=== PATIENT | female | born 1990 | race Caucasian/White ===

== ENCOUNTER 2020-03-03 15:54 | Emergency (ER) | payer OTHER, SELFPAY ==
--- NOTE | ~2020-03-03 | XR_ITS ---
EXAMINATION: XR foot RT min 3V EXAM DATE: 03/03/2020 17:25 INDICATION: Right foot redness and pain medially. TECHNIQUE: Right foot dorsoplantar, lateral and oblique projections obtained and reviewed. There is no prior study for comparison. FINDINGS: Right metatarsal bones unremarkable. There are no acute fractures or dislocations identifi ed. There is no subcutaneous gas. The soft tissue is unremarkable. There is a screw in the tibial plafond . There are no bony erosions identified. IMPRESSION: 1. Unremarkable right foot exam. Reviewed, dictated and finalized at location A.
[2020-03-03 16:18] VITALS: BP 146/86; PULSE 98; RESP 20; TEMP 37.1; O2SAT 98
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
--- NOTE | 2020-03-03 17:29 | PC.NURSE ---
pt denies being and unable to provide urine specimen at this time. Portable xray at bedside to obtain imaging.
[2020-03-03 18:21] LABS: Basophils Percent Auto 0.5 % (0.2-1.2); Eosinophils Absolute Auto 0.1 K/mm3 (0-0.3); Eosinophils Percent Auto 1.2 % (0-4.4); Hematocrit 36.5 % (37.0-47.0); Hemoglobin 12.1 g/dL (12.0-15.0); Immature Granulocyte Absolute 0.01 K/mm3 (0.00-0.031); Immature Granulocyte Percent A 0.1 % (0-0.5); Lymphocytes Absolute Auto 1.61 K/mm3 (0.9-3.2); Lymphocytes Percent Auto 19.9 % (18.3-44.2); Mean Corpuscular HGB Conc 33.2 g/dl (32-36); Mean Corpuscular Hemoglobin 29.6 pg (26-34); Mean Corpuscular Volume 89.2 fl (80-100); Mean Platelet Volume 10.6 fl (7.4-10.4); Monocytes Absolute Auto 0.6 K/mm3 (0.1-0.6); Monocytes Percent Auto 7.8 % (2.6-8.5); Neutrophils Absolute Auto 5.7 K/mm3 (1.3-6.7); Neutrophils Percent Auto 70.5 % (45.5-73.1); Platelet Count Result 280 k/mm3 (150-375); Red Blood Count 4.09 M/mm3 (4.2-5.4); Red Cell Distribution Width 12.7 % (11.5-14.5); White Blood Count 8.1 K/mm3 (4.5-10.0)
[2020-03-03] MEDS: IBUPROFEN 600 MG TABLET PO (18:32)
[2020-03-03 18:36] LABS: Alanine Aminotransferase 18 U/L (4-35); Albumin Level 4.1 g/dL (3.5-5.1); Alkaline Phosphatase 72 U/L (38-126); Anion Gap 10 mmol/L (8-16); Aspartate Amino Transferase 25 U/L (14-36); Bilirubin,Total 0.2 mg/dL (0.2-1.3); Blood Urea Nitrogen 11 mg/dL (7-17); Calcium 8.8 mg/dL (8.4-10.2); Carbon Dioxide 27 mmol/L (22-30); Chloride 104 mmol/L (98-107); Estimated CRCL calculation 112 ml/min; Estimated Glomerular Filt Rate > 60; Glucose 88 mg/dL (65-105); Potassium 3.7 mmol/L (3.4-5.0); Sodium 141 mmol/L (137-145)
--- NOTE | 2020-03-03 19:00 | PC.NURSE ---
pt denies being able to provide urine specimen at this time.
[2020-03-03 20:03] VITALS: BP 131/84; PULSE 92; RESP 18; O2SAT 99
== END 2020-03-03 20:07 | disposition home or self-care (01) ==
PROVIDERS: Emergency Medicine; Emergency Provider Emergency Medicine; PCP Family Medicine
DX: S61.401A Unspecified open wound of right hand, initial encounter (principal); L03.115 Cellulitis of right lower limb; X58.XXXA Exposure to other specified factors, initial encounter
CPT/HCPCS: 11042; 11043; 36415; 73630; 80053; 85025; 99283; A9270

== ENCOUNTER 2024-06-04 10:06 | Emergency (ER) | payer OTHER, SELFPAY ==
--- NOTE | ~2024-06-04 | CT_ITS ---
EXAMINATION: CT abdomen pelvis w con DATE: 06/04/2024 13:00 INDICATION: Lower abdominal pain. TECHNIQUE: Computed tomography (CT) of the abdomen and pelvis was performed with 100 mL Omnipaque 350 intravenous contrast. Automated exposure control and iterative reconstruction technique were employe d. The dose-length product was 1477.82 mGy-cm. COMPARISON: None. FINDINGS: The visualized portions of the lung bases demonstrate mild atelectasis. No pleural effusion . The heart size is normal. No pericardial effusion. The liver, gallbladder, spleen, pancreas, adrena l glands, and kidneys are normal. There are no dilated loops of bowel. The appendix is not visualized . There are no pathologically enlarged lymph nodes. There is no free intraperitoneal fluid. There is a 2.3 x 1.8 cm subcutaneous mass in the low anterior abdominal wall to the left of midline with surro unding fat stranding. There is moderate thoracic spondylosis and lumbar spondylosis. There are chroni c bilateral L5 pars defects. IMPRESSION: 1. 2.3 cm subcutaneous mass in low anterior abdominal wall, most likely endometriosis in the section scar. Ultrasound-guided core needle biopsy is recommended. Reviewed, dictated and finalized at location A. ER LOADER IMPRESSION: 1. 2.3 cm subcutaneous mass in low anterior abdominal wall, most likely endomet riosis in the section scar. Ultrasound-guided core needle biopsy is re commended.
[2024-06-04 10:10] VITALS: BP 136/86; PULSE 90; RESP 16; TEMP 36.9; O2SAT 100
[2024-06-04 11:18] LABS: Basophils Percent Auto 0.4 % (0.2-1.2); Eosinophils Percent Auto 0.6 % (0-4.4); Hemoglobin 13.6 g/dL (12.0-15.0); Immature Granulocyte Absolute 0.01 K/mm3 (0.00-0.031); Immature Granulocyte Percent A 0.2 % (0-0.5); Lymphocytes Absolute Auto 1.39 K/mm3 (0.9-3.2); Lymphocytes Percent Auto 28.9 % (18.3-44.2); Mean Corpuscular HGB Conc 33.2 g/dl (32-36); Mean Corpuscular Hemoglobin 29.1 pg (26-34); Mean Corpuscular Volume 87.6 fl (80-100); Mean Platelet Volume 9.4 fl (7.4-10.4); Monocytes Absolute Auto 0.4 K/mm3 (0.1-0.6); Monocytes Percent Auto 7.5 % (2.6-8.5); Neutrophils Percent Auto 62.4 % (45.5-73.1); Platelet Count Result 241 k/mm3 (150-375); Red Blood Count 4.68 M/mm3 (4.2-5.4); Red Cell Distribution Width 13.2 % (11.5-14.5); White Blood Count 4.8 K/mm3 (4.5-10.0)
[2024-06-04 11:21] LABS: Add Urine Microscopic? NO; Appearance Urine Clear (Clear); Bilirubin Urine Negative (Negative); Blood Urine Negative (Negative); Color Urine Yellow (Yellow); Glucose Urine UA Negative (Negative); Ketones Urine Negative (Negative); Leukocyte Esterase Ur Negative LEU/UL (Negative); Nitrate Urine Negative (Negative); Protein Urine Negative (Negative); Specific Grav Ur 1.014 (1.001-1.035); Urobilinogen Urine 0.2 mg/dL (<2.0)
[2024-06-04 11:31] LABS: Alanine Aminotransferase 16 U/L (6-35); Albumin Level 4.4 g/dL (3.5-5.1); Alkaline Phosphatase 54 U/L (38-126); Anion Gap 5 mmol/L (4-12); Aspartate Amino Transferase 23 U/L (14-36); Bilirubin,Total 0.6 mg/dL (0.2-1.3); Blood Urea Nitrogen 13 mg/dL (7-17); Calcium 9.1 mg/dL (8.4-10.2); Carbon Dioxide 30 mmol/L (22-30); Chloride 103 mmol/L (98-107); Estimated CRCL calculation 118 ml/min; Estimated Glomerular Filt Rate > 60; Glucose 86 mg/dL (65-110); Lipase 81 U/L (23-300); Potassium 4.5 mmol/L (3.4-5.0); Sodium 138 mmol/L (137-145)
--- NOTE | 2024-06-04 11:34 | ED_ITS ---
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 SHE DENIES ANY FEVER, CHILLS, NAUSEA, VOMITING, DIARRHEA, CONSTIPATION, VAGINAL BLEEDING OR DISCHARGE. PATIENT IS HEALTHY OTHERWISE, DOES NOT TAKE MEDICINE AT HOME, USES MARIJUANA OCCASIONALLY Related Data Allergies Allergy/AdvReac Type Severity Reaction Status Date / Time acetaminophen (From Vicodin) AdvReac Vomiting Verified 06/04/24 11:21 hydrocodone (From Vicodin) AdvReac Vomiting Verified 06/04/24 11:21 Review of Systems 2 Review of Systems: All systems reviewed & are unremarkable except as noted in HPI and below PMFSH Family History Family History Mother Depression Family history of malignant neoplasm Sibling Asthma Family history of attention deficit hyperactivity disorder (ADHD) Social History Social History Second hand tobacco smoke exposure: Yes Alcohol intake: current Exam 2 Narrative: GENERAL APPEARANCE: WELL-DEVELOPED, WELL-NOURISHED SKIN: NORMAL COLOR HEAD: NORMOCEPHALIC, NONTRAUMATIC EYES: CLEAR CONJUNCTIVA ENT: OROPHARYNX NORMAL, EARS NORMAL, NOSE NORMAL NECK: SUPPLE, NONTENDER CHEST AND RESPIRATORY: AIRWAY PATENT, NO RESPIRATORY DISTRESS, NO ACCESSORY MUSCLE USE HEART: REGULAR RATE/RHYTHM ABDOMEN: SOFT, MILD DIFFUSE TENDERNESS LEFT LOWER QUADRANT WITH MASSLIKE FEELING AT THE LEFT SIDE OF THE SECTION, TENDER TO TOUCH, FIRM IN CONSISTENCY, NO ORGANOMEGALY, QUIET BOWEL SOUNDS VASCULAR: NORMAL PERIPHERAL PULSES, NORMAL CAPILLARY REFILL. 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 TESTED, NO GROSS MOTOR DEFICIT Course Vital Signs Vital signs: Vital Signs Temperature 36.9 C 06/04/24 10:10 Pulse Rate 90 06/04/24 10:10 Respiratory Rate 16 06/04/24 10:10 Blood Pressure 136/86 06/04/24 10:10 Pulse Oximetry 100 06/04/24 10:10 Oxygen Delivery Room Air 06/04/24 10:10 Temperature 36.6 C 06/04/24 12:52 Pulse Rate 69 06/04/24 12:52 Respiratory Rate 16 06/04/24 12:52 Blood Pressure 114/76 06/04/24 12:52 Pulse Oximetry 100 06/04/24 12:52 Oxygen Delivery Room Air 06/04/24 10:10 MDM - Abdominal Pain MDM Narrative Medical decision making narrative: LEFT LOWER QUADRANT PAIN WHILE LIFTING A BUCKET VITAL SIGNS ON ARRIVAL INSIGNIFICANT PHYSICAL EXAMINATION SHOWING TENDERNESS WITH DEEP PALPATION AT THE LEFT LOWER QUADRANT WITH MASSLIKE FEELING DIFFERENTIAL DIAGNOSIS ABDOMINAL WALL MUSCULAR STRAIN/SPRAIN, ABDOMINAL WALL HEMATOMA. BLOOD WORKUP TODAY INCLUDES CBC, CMP, LIPASE SHOWED NO SIGNIFICANT ABNORMALITIES URINALYSIS SHOWED NO EVIDENCE OF INFECTION CT SCAN OF THE ABDOMEN AND PELVIS SHOWED. 2.3 cm subcutaneous mass in low anterior abdominal wall, most likely endometriosis in the section scar. Ultrasound-guided core needle biopsy is recommended. PATIENT'S SYMPTOMS RESOLVED AFTER ARRIVING TO THE EMERGENCY ROOM, CURRENTLY IS PAIN-FREE THE PAIN HIGH LIKELY SECONDARY TO MUSCULAR STRAIN/SPRAIN AND LESS LIKELY SECONDARY TO THE MASS AT THE SUBCUTANEOUS AREA. PATIENT WAS ADVISED TO TAKE TYLENOL, IBUPROFEN NEEDED AND FOLLOW-UP WITH OBGYN IMMEDIATELY FOR FURTHER EVALUATION DISCHARGE THE PT WAS DISCHARGED TO HOME.THE PT,S CONDITION UPON DISCHARGE WAS FAIR,EDUCATION WAS PROVIDED TO THE PT IN REFERENCE TO THE FINAL IMPRESSION,DISCHARGE STUDY RESULTS,TREATMENT,PROGNOSIS AND NEED FOR FOLLOW UP . Differential Diagnosis Differential diagnosis: Likely other ( ABOVE) Medical Records Attestation: I reviewed the patient's medical records. Lab Data Attestation: I reviewed the patient's lab results. 06/04/24 11:12 06/04/24 11:12 Labs: Lab Results 06/04/24 Range/Units 11:12 WBC 4.8 (4.5-10.0) K/mm3 RBC 4.68 (4.2-5.4) M/mm3 Hgb 13.6 (12.0-15.0) g/dL Hct 41.0 (37.0-47.0) % MCV 87.6 (80-100) fl MCH 29.1 (26-34) pg MCHC 33.2 (32-36) g/dl RDW 13.2 (11.5-14.5) % Plt Count 241 (150-375) k/mm3 MPV 9.4 (7.4-10.4) fl Immature Gran % (Auto) 0.2 (0-0.5) % Neut % (Auto) 62.4 (45.5-73.1) % Lymph % (Auto) 28.9 (18.3-44.2) % [place] % (Auto) 7.5 (2.6-8.5) % Eos % (Auto) 0.6 (0-4.4) % Baso % (Auto) 0.4 (0.2-1.2) % Lymph # (Auto) 1.39 (0.9-3.2) K/mm3 Spencer # (Auto) 0.4 (0.1-0.6) K/mm3 Eos # (Auto) 0.0 (0-0.3) K/mm3 Baso # (Auto) 0.0 (0.0-0.1) K/mm3 Abs Immat Gran (auto) 0.01 (0.00-0.031) K/mm3 Absolute Neuts (auto) 3.0 (1.3-6.7) K/mm3 Absolute Nucleated RBC 0.000 (0.0-0.012) K/mm3 Nucleated RBC % 0.0 (0.0-0.2) % Sodium 138 (137-145) mmol/L Potassium 4.5 (3.4-5.0) mmol/L Chloride 103 (98-107) mmol/L Carbon Dioxide 30 (22-30) mmol/L Anion Gap 5 (4-12) mmol/L BUN 13 (7-17) mg/dL Creatinine 0.73 (0.7-1.0) mg/dL Estim Creat Clear Calc 118 ml/min Estimated GFR > 60 (59 - ) Glucose 86 (65-110) mg/dL Calcium 9.1 (8.4-10.2) mg/dL Total Bilirubin 0.6 (0.2-1.3) mg/dL AST 23 (14-36) U/L ALT 16 (6-35) U/L Alkaline Phosphatase 54 (38-126) U/L Total Protein 8.0 (6.3-8.2) g/dL Albumin 4.4 (3.5-5.1) g/dL Lipase 81 (23-300) U/L Urine Color Yellow (Yellow) Urine Appearance Clear (Clear) Urine pH 7.0 (5.0-9.0) Ur Specific [place] 1.014 (1.001-1.035) Urine Protein Negative (Negative) mg/dL Urine Glucose (UA) Negative (Negative) mg/dL Urine Ketones Negative (Negative) mg/dL Ur Blood (Man) Negative (Negative) Urine Nitrate Negative (Negative) Urine Bilirubin Negative (Negative) Urine Urobilinogen 0.2 (<2.0) mg/dL Leukocyte Esterase Rfl Negative (Negative) SIDNEY/UL Urine Test Negative Imaging Data Radiologist's impression: ITS Impressions Abdomen/Pelvis CT 06/04/24 13:05 IMPRESSION: 1. 2.3 cm subcutaneous mass in low anterior abdominal wall, most likely endometriosis in the section scar. Ultrasound-guided core needle biopsy is recommended. Critical Care Time Critical Care Time Critical Care Time: No Discharge Plan Discharge Clinical Impression: Abdominal wall mass Patient Disposition: Home, Self-Care Condition: Improved Instructions: Acute Abdominal Pain (ED) Additional Instructions: RETURN IF SYMPTOMS ARE WORSENING , , TAKE TYLENOL, IBUPROFEN NEEDED FOR ACHES AND PAIN, CT SCAN OF THE ABDOMEN AND PELVIS TODAY SHOWED THAT HE HAVE ABDOMINAL MASS AT THE SECTION SCAR REQUIRES BIOPSY FOR FURTHER EVALUATION. PLEASE CONTACT YOUR OBGYN SOON POSSIBLE FOR FURTHER EVALUATION. Patient Language: Guyanese Prescriptions: No Action mupirocin 2 % ointment 1 applic topical TID Qty: 15 0RF cephalexin [Keflex] 500 mg capsule 500 mg PO Q8H 7 Days Qty: 21 0RF Follow-up/Referrals: Buster Nguyen MD [Physician] - 06/05/24 Vargas,Freida Banks MD [Primary Care Provider] - Stand Alone Forms: Work/School Release IP
[2024-06-04 12:21] LABS: Pregnancy On Board Control Positive; Urine Pregnancy Test Negative
[2024-06-04 12:52] VITALS: BP 114/76; PULSE 69; RESP 16; TEMP 36.6; O2SAT 100
[2024-06-04 13:52] VITALS: BP 120/96; PULSE 80; RESP 16; TEMP 36.6; O2SAT 100
== END 2024-06-04 13:54 | disposition home or self-care (01) ==
PROVIDERS: Physician Assistant; Emergency Provider Emergency Medicine; PCP Family Medicine
DX: R19.00 Intra-abdominal and pelvic swelling, mass and lump, unspecified site (principal)
CPT/HCPCS: 36415; 74177; 80053; 81003; 81025; 83690; 85025; 99284; Q9967

== ENCOUNTER 2024-10-29 12:03 | Emergency (ER) | payer SELFPAY ==
[2024-10-29 12:08] VITALS: BP 140/99; PULSE 104; RESP 18; O2SAT 100
[2024-10-29 12:35] VITALS: BP 114/80; PULSE 92; RESP 20; O2SAT 99
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
[2024-10-29] MEDS: predniSONE 20 MG TABLET 40 MG PO (13:04)
[2024-10-29] MEDS: IPRATROPIUM 0.5 MG/ALBUTEROL SULFATE 2.5 MG AMPUL.NEB 3 ML INHALATION ×3 (13:16→13:17)
[2024-10-29 13:18] VITALS: PULSE 70; RESP 20
[2024-10-29 13:40] VITALS: PULSE 86; RESP 20
[2024-10-29 13:57] VITALS: PULSE 108; RESP 26; O2SAT 99
== END 2024-10-29 14:43 | disposition home or self-care (01) ==
PROVIDERS: Emergency Provider Nurse Practitioner Family
DX: J45.901 Unspecified asthma with (acute) exacerbation (principal)
CPT/HCPCS: 94640; 99283; J7512